=== PATIENT | female | born 1995 | race Caucasian/White ===

== ENCOUNTER 2020-01-12 22:59 | Inpatient (IN) ==
[2020-01-12] MEDS ORDERED: Penicillin G Potassium IV 5,000,000 UNITS in NS 0.9% 100 ml BAG 100 ML IVPB ONE (23:22)
[2020-01-12] MEDS ORDERED: Lactated Ringers 1000 ml BAG 1,000 ML IV ONE (23:22)
[2020-01-12] MEDS ORDERED: Lactated Ringers 1000 ml BAG 1,000 ML IV SCH (23:45)
[2020-01-12] MEDS ORDERED: OBEPIDURAL 250 ML EPIDURAL ONE (23:45)
[2020-01-13] MEDS ORDERED: Bupivacaine 0.25% SDV PF 10 ML VIAL INJ ONE (00:01)
[2020-01-13 00:02] LABS: ABS Basophils 0.1 10^3/ul (0-0.2); ABS Monocytes 1.1 10^3/ul (0-0.8); Eosinophil % 0.2 %; Hematocrit 34 % (35-47); Hemoglobin 11.5 g/dL (12.0-16.0); Mean Corpuscular HGB Conc 34 g/dL (31-36); Mean Corpuscular Hemoglobin 30 pg (27-31); Mean Corpuscular Volume 89 fL (80-97); Mean Platelet Volume 9.9 fL (7.4-10.4); Nucleated Red Blood Cells % 0.1; Platelet Count 232 10^3/uL (150-450); Red Blood Count 3.83 10^6 /uL (3.70-4.87); Red Cell Distribution Width 14 % (10-15); White Blood Count 14.2 10^3/uL (3.5-10.8)
[2020-01-13 00:11] LABS: Albumin 3.2 g/dL (3.2-5.2); Calcium 9.3 mg/dL (8.6-10.3); Potassium 4.5 mmol/L (3.5-5.0); Total Bilirubin 0.2 mg/dL (0.2-1.0)
[2020-01-13 00:17] LABS: Albumin/Globulin Ratio 1.3 (1-3); BUN/Creatinine Ratio 17.9 (8-20); EGFR African American 163.8 (>60); EGFR Non-African American 135.4 (>60); Globulin 2.5 g/dL (2-4); Total Protein 5.7 g/dL (6.4-8.9); Uric Acid 5.1 mg/dL (2.3-6.6)
[2020-01-13 00:21] LABS: Urine Benzodiazepine Screen None Detected (None Detect); Urine Opiates Screen None Detected (None Detect)
[2020-01-13] MEDS ORDERED: Sodium Citrate/Citric Acid LIQ 15 ML UDC PO PRN (00:23)
[2020-01-13] MEDS ORDERED: EPHEDrine (Pressors) 50 MG/ML VIAL IV PUSH PRN (00:23)
[2020-01-13] MEDS ORDERED: Phenylephrine 40 mcg/mL 10mL (400mcg) SYRINGE IV PUSH PRN (00:23)
[2020-01-13] MEDS ORDERED: Lactated Ringers 1000 ml BAG 1,000 ML IV ONE (00:23)
[2020-01-13] MEDS ORDERED: OBEPIDURAL 250 ML EPIDURAL SCH (01:00)
[2020-01-13] MEDS ORDERED: Lactated Ringers 1000 ml BAG 1,000 ML IV SCH ×2 (01:00→03:00)
[2020-01-13] MEDS ORDERED: Oxytocin in LR 20 UNITS/1,000 ML BAG IVPB ONE (01:20)
[2020-01-13] MEDS ORDERED: Glycerin ADULT 2.4 gm SUPP PR PRN (02:05)
[2020-01-13] MEDS ORDERED: Witch Hazel PAD JAR TOPICAL PRN (02:05)
[2020-01-13] MEDS ORDERED: Oxytocin in LR 20 UNITS/1,000 ML BAG IVPB SCH (03:00)
[2020-01-13] MEDS ORDERED: Ammonia Inhalant 1 EA AMP ONE (03:55)
[2020-01-13] MEDS ORDERED: Penicillin G Potassium IV 3,000,000 UNITS in NS 0.9% 100 ml BAG 100 ML IVPB SCH (04:30)
[2020-01-13] MEDS: Dibucaine 1% OINT 28.35 GM TUBE PR PRN (04:30)
[2020-01-13] MEDS ORDERED: Phenylephrine 40 mcg/mL 10mL (400mcg) SYRINGE ONE (21:58)
[2020-01-14] MEDS ORDERED: EPHEDrine (Pressors) 50 MG/ML VIAL ONE (01:15)
[2020-01-14 07:45] LABS: ABS Basophils 0.1 10^3/ul (0-0.2); ABS Lymphocytes 2.5 10^3/ul (1.0-4.8); ABS Monocytes 0.8 10^3/ul (0-0.8); Eosinophil % 0.3 %; Hematocrit 33 % (35-47); Mean Corpuscular HGB Conc 33 g/dL (31-36); Mean Corpuscular Hemoglobin 30 pg (27-31); Mean Corpuscular Volume 89 fL (80-97); Nucleated Red Blood Cells % 0.1; Platelet Count 241 10^3/uL (150-450); Red Cell Distribution Width 15 % (10-15); White Blood Count 13.3 10^3/uL (3.5-10.8)
[2020-01-14] MEDS: Dibucaine 1% OINT 28.35 GM TUBE PR PRN (19:43)
[2020-01-15 09:11] VITALS: BP 123/66
== END 2020-01-15 11:25 | disposition home or self-care (01) | DRG 560 ==
LOC: MCHOBOUT 22:59 → MCHOB 23:09
PROVIDERS: ADMIT Obstetrics & Gynecology; ATTEND Advanced Practice Midwife